=== PATIENT | female | born 1995 | race Caucasian/White ===

== ENCOUNTER → 2018-07-17 17:10 | Observation (INO) ==
[2018-07-17 16:22] LABS: Bilirubin,Urine Negative (Negative); Blood,Urine Negative (Negative); Clarity,Urine Cloudy (Clear); Color,Urine Yellow (Yellow); Glucose,Urine (UA) Normal (Normal); Ketones,Urine 40 mg/dL (Negative); Leukocyte Esterase,Urine Small (Negative); Nitrite,Urine Negative (Negative); Protein,Urine Negative (Neg-Trace); Specific Gravity,Urine 1.008 (1.010-1.025); Urobilinogen,Urine Normal (Normal)
[2018-07-17 16:23] LABS: Bacteria,Urine Moderate per hpf (None-Few); Hyaline Casts,Urine None Seen per lpf (None-Few); RBC,Urine 0-3 per hpf (0-3); Squamous Epithelial Cell,Urine Many per lpf (None-Few)
[2018-07-17 16:32] LABS: Amphetamine Screen,Urine Negative ng/mL (Cutoff=1000); Barbiturate Screen,Urine Negative ng/mL (Cutoff=200); Benzodiazepines Screen,Urine Negative ng/mL (Cutoff=200); Cannabinoid Screen,Urine Negative ng/mL (Cutoff = 50); Cocaine Screen,Urine Negative ng/mL (Cutoff= 300); Opiate Screen,Urine Negative ng/mL (Cutoff=300); Phencyclidine Screen,Urine Negative ng/mL (Cutoff=25)
--- NOTE | 2018-07-17 16:58 | OB/GYN Progress Note ---
Date of Encounter: 07/17/18 Time of Encounter: 16:56 - Assessment and Plan (1) 25 weeks gestation of Current Visit: Yes Status: Acute (2) Cramping affecting , antepartum Current Visit: Yes Status: Acute cramping was postcoital and no contractions seen on toco. Patient discharged home on pelvic rest to followup as scheduled in the office. She was seen and evaluated by RN only. Objective - Vital Signs Vital Signs: Intake and Output 07/17/18 07/17/18 07/17/18 07:59 15:59 23:59 Other: Weight 109.2 kg Patient Weight 07/17/18 23:59 Weight 109.2 kg - Exam FHR: auscultation normal (appropriate for gestational age) - Labs Labs: Abnormal lab results Urine Clarity Cloudy (Clear) A 07/17/18 16:00 Ur Specific [place] 1.008 (1.010-1.025) L 07/17/18 16:00 Urine Ketones 40 mg/dL (Negative) H 07/17/18 16:00 Ur Leukocyte Esterase Small (Negative) H 07/17/18 16:00 Urine Microscopic WBC 5-15 per hpf (0-3) H 07/17/18 16:00 Ur Squamous Epith Cells Many per lpf (None-Few) H 07/17/18 16:00 Urine Bacteria Moderate per hpf (None-Few) H 07/17/18 16:00 Ur Culture Indicated? NO. (NO) A 07/17/18 16:00
== END | disposition home or self-care (01) ==
LOC: 1NENULAB
PROVIDERS: ADMIT Advanced Practice Midwife; ATTEND Advanced Practice Midwife

== ENCOUNTER → 2018-08-03 21:29 | Observation (INO) ==
[2018-08-03 20:25] LABS: Bilirubin,Urine Negative (Negative); Blood,Urine Negative (Negative); Clarity,Urine Clear (Clear); Color,Urine Yellow (Yellow); Glucose,Urine (UA) Normal (Normal); Ketones,Urine Negative (Negative); Leukocyte Esterase,Urine Negative (Negative); Nitrite,Urine Negative (Negative); Protein,Urine Negative (Neg-Trace); Urobilinogen,Urine Normal (Normal)
[2018-08-03 20:34] LABS: Amphetamine Screen,Urine Negative ng/mL (Cutoff=1000); Barbiturate Screen,Urine Negative ng/mL (Cutoff=200); Benzodiazepines Screen,Urine Negative ng/mL (Cutoff=200); Cannabinoid Screen,Urine Negative ng/mL (Cutoff = 50); Cocaine Screen,Urine Negative ng/mL (Cutoff= 300); Opiate Screen,Urine Negative ng/mL (Cutoff=300); Phencyclidine Screen,Urine Negative ng/mL (Cutoff=25)
--- NOTE | 2018-08-03 21:25 | Discharge Summary ---
Date of Encounter: 08/03/18 Time of Encounter: 21:25 - Discharge Diagnosis (1) 27 weeks gestation of Priority: Primary Status: Acute Comments: Admitted for observation for complaint of cramping. (2) NST (non-stress test) reactive Priority: Secondary Status: Acute Comments: FHR 135 bpm, moderate variability, +15x15 accels, no decels. (3) Cramping affecting , antepartum Priority: Secondary Status: Acute Comments: Continuous contraction monitoring reveals no contractions. Abdomen palpates soft. - Discharge Medications Home Medications: Tablet 1 tab PO DAILY 08/03/18 [History] Allergies/Adverse Reactions: 3 Allergy/AdvReac Type Severity Reaction Status Date / Time No Known Allergies Allergy Verified 08/03/18 20:21 Data Procedures and tests throughout hospitalization: Laboratory Tests 08/03/18 08/03/18 20:10 20:10 Urine Color Yellow Urine Clarity Clear Urine pH 7.0 Ur Specific [place] 1.010 Urine Protein Negative Urine Glucose (UA) Normal Urine Ketones Negative Urine Blood Negative Urine Nitrite Negative Urine Bilirubin Negative Urine Urobilinogen Normal Ur Leukocyte Esterase Negative Ur Culture Indicated? NO Urine Opiates Screen Negative Ur Barbiturates Screen Negative Ur Phencyclidine Scrn Negative Ur Amphetamines Screen Negative U Benzodiazepines Scrn Negative Urine Cocaine Screen Negative U Marijuana (THC) Screen Negative Ur Drug Screen Interp See Below Labs on day of discharge: Labs from last 24 hours 08/03/18 08/03/18 20:10 20:10 Urine Color Yellow Urine Clarity Clear Urine pH 7.0 Ur Specific [place] 1.010 Urine Protein Negative Urine Glucose (UA) Normal Urine Ketones Negative Urine Blood Negative Urine Nitrite Negative Urine Bilirubin Negative Urine Urobilinogen Normal Ur Leukocyte Esterase Negative Ur Culture Indicated? NO Urine Opiates Screen Negative Ur Barbiturates Screen Negative Ur Phencyclidine Scrn Negative Ur Amphetamines Screen Negative U Benzodiazepines Scrn Negative Urine Cocaine Screen Negative U Marijuana (THC) Screen Negative Ur Drug Screen Interp See Below Date of admission: 08/03/18 19:31 Discharging clinician: Chelsea Villaseñor Anticipated date of discharge: 08/03/18 - Patient Status Disposition: Home, Self-Care Condition: Good Functional capacity at discharge: independent ambulation Overall status at discharge: patient is back to baseline - Discharge Instructions Follow Up With: Aleja Vásquez DO [Partnered Physician] - - Diet and Activity Activity: resume usual activities as tolerated Diet: regular diet Hospital Course ACCOUNTING PROFESSIONAL Hospital course: Padmini is a at 27 weeks who came in with complaint of cramping and contractions today. States she was at a today and felt very stressed out while she was there. She drank water when she went home but contractions and cramping continued. Patient reported >6 contractions in one hour so she came to OB unit. Reactive NST noted, no contractions on monitor or palpated. SVE closed/thick/high. Patient given labor precautions. Time Attestation: Total time spent providing and/or coordinating discharge services: Time Spent: Less than 30 minutes Exam - Constitutional General appearance IM: A&O X 3, pleasant, no acute distress, obese - Respiratory Respiratory exam: Present: CTAB - Cardiovascular Cardiovascular exam IM: Present: RRR, +S1, +S2 - GI/Abdominal GI/Abdominal exam IM: normal bowel sounds - Rectal Rectal exam: deferred - Extremities Exam Extremities exam IM: Present: normal capillary refill, normal inspection - Neurological Exam Neurological exam: normal gait, oriented X3 - VTE Reasons for not Prescribing Prophylaxis: Treatment not Indicated - Low risk for VTE
== END | disposition home or self-care (01) ==
LOC: 1NENULAB
PROVIDERS: ADMIT Advanced Practice Midwife; ATTEND Advanced Practice Midwife

== ENCOUNTER 2018-11-04 06:37 | Inpatient (IN) ==
[~2018-11-04 06:37] MED LIST: Famotidine 20 MG/2 ML VIAL IVP PRN
[2018-11-04] MEDS ORDERED: Metoclopramide 10 MG/2 ML VIAL IVP PRN (06:42)
[2018-11-04] MEDS ORDERED: Ringers Solution, Lactated 1,000 ML IVC SCH (06:45)
[2018-11-04] MEDS ORDERED: Ringers Solution, Lactated 1,000 ML ONE (06:46)
[2018-11-04 07:14] LABS: Basophils % 0.2 %; Eosinophils % 0.1 %; Hematocrit 41.8 % (35.3-44.9); Hemoglobin 14.4 g/dL (11.5-15.4); Immature Granulocytes % 0.2 % (0-4); Lymphocytes # 2.2 K/mcL (0.6-4.6); Mean Corpuscular HGB Conc 34.4 g/dL (31.6-35.5); Mean Corpuscular Hemoglobin 32.7 pg (28.0-33.3); Monocytes # 0.5 K/mcL (0.0-1.3); Monocytes % 5.9 %; Neutrophils # 6.2 K/mcL (1.6-8.9); Platelet Count 176 K/mcL (140-400); Red Cell Distribution Width 13.2 % (11.5-14.5); Segmented Neutrophils % 69.6 %
[2018-11-04 07:20] LABS: Amphetamine Screen,Urine Negative ng/mL (Cutoff=1000); Barbiturate Screen,Urine Negative ng/mL (Cutoff=200); Benzodiazepines Screen,Urine Negative ng/mL (Cutoff=300)
[2018-11-04 07:21] LABS: Cannabinoid Screen,Urine Negative ng/mL (Cutoff = 50); Cocaine Screen,Urine Negative ng/mL (Cutoff= 300); Opiate Screen,Urine Negative ng/mL (Cutoff=300); Phencyclidine Screen,Urine Negative ng/mL (Cutoff=25)
--- NOTE | 2018-11-04 08:49 | OB/GYN History & Physical ---
Date of Encounter: 11/04/18 Time of Encounter: 08:45 Assessment and Plan (1) 40 weeks gestation of Current visit: Yes Status: Acute 22 y/o @ 40+6 weeks, h/o prior for NRFHT(desires TOLAC), GBS neg Plan: I discussed with the patient again about the risks of TOLAC and she expressed her understanding, we will allow to make progress as she is now 3-4cm from 2cm at arrival, if stalled, will start pitocin, ok for epidural if she desires, anticipate FHT CAT 1 History of Present Illness HPI: Ms. Jackson is a 22 year old female @ 40+6 weeks presents to L&D with SROM @ 2AM. She is having some contractions, has some slight bleeding with leaking of fluid, feels good FM. She has a h/o of a prior for NRFHT. She desires a TOLAC. She has been counseled on the risks including uterine rupture, demise, emergency surgery etc and wants to proceed. She is GBS neg. She desires permanent sterilization. Past Med Surg Social Fam HX - Past Medical History Medical history: other Additional medical history: history of gallbladder complications Psychiatric history: anxiety, depression - Past Surgical History Surgical History: Additional surgical history: wisdom teeth removed - Social History Smoking Status: Never smoker Smokeless Tobacco Status: No Alcohol use: none Drug use: marijuana - Family History Mother Adopted: No Family Member Ethnicity: Non- Living Status: Still Living Hx Family Cardiac Disorders: Yes (htn) Hx Family Respiratory Disorders: No Hx Family Cancer: No Hx Family GI Disorders: No Hx Family Genitourinary Disorders: No Hx Family Endocrine Disorder: Yes (diabetic) Hx Family Musculoskeletal Disorders: No Hx Family Neuromuscular Disorders: No Hx Family Neurologic Disorders: No Hx Family HEENT Disorders: No Hx Family Autoimmune Disorders: No Hx Family Reproductive Disorders: No Hx Family Psychosocial Disorders: No Hx Family Medical Disorders: No Obstetrical History - Pregnancies : 4 Para: 2 Medications and Allergies Tablet 1 tab PO DAILY 08/03/18 [History] Pepcid 20 mg PO DAILY 11/04/18 [History] Allergy/AdvReac Type Severity Reaction Status Date / Time No Known Allergies Allergy Verified 08/03/18 20:21 Review of System OB All systems PM: reviewed and no additional remarkable complaints except as stated Exam - Vital Signs Vital signs: Initial Vital Signs BP 131/76 11/04/18 06:50 - Constitutional Constitutional: no acute distress - HEENT HEENT: PERRL - Neck Neck exam: full ROM - Lungs Respiratory exam: CTAB - Cardiovascular Cardiovascular exam: RRR - Abdomen Abdomen: Present: gravid - Cervix Dilation: 3 Results Result Diagrams: 11/04/18 06:34 All other labs normal. - VTE Reasons for not Prescribing Prophylaxis: Treatment not Indicated - Low risk for VTE
--- NOTE | 2018-11-04 09:06 | Anesthesia Evaluation PreOp ---
Date of Encounter: 11/04/18 Time of Encounter: 08:43 - Past History Planned Operation: del (TOLAC) 1-vaginal,1-section term Cardiac History: Denies any Significant Hx Pulmonary History: Denies Any Significant HX CABLE BRAIDER History: Denies Any Significant HX Other Medical History: Other (anxiety, depression, MO = 48) Anesthesia History: No Prior Anesthetic Complications, Past Anesthesia (previous epidural x2 (was challenging in past took long time) had to get 1 replaced, no family hx reported) Alcohol Use: none Drug use: marijuana Medications and Allergies Tablet 1 tab PO DAILY 08/03/18 [History] Pepcid 20 mg PO DAILY 11/04/18 [History] Allergy/AdvReac Type Severity Reaction Status Date / Time No Known Allergies Allergy Verified 08/03/18 20:21 Anesthesia Results - Labs 11/04/18 06:34 Anesthesia Exam - HEENT Pupil (Motor): Pupils equal Mallampati: II Teeth: Normal Oral Opening: Greater than 3 - CABLE BRAIDER LOC: Oriented CABLE BRAIDER Motor: Normal RUE, Normal LUE, Normal RLE, Normal LLE, Normal Face CABLE BRAIDER Sensory: Normal: RUE, LUE, RLE, LLE, Face - Cardiac Rhythm: Regular Murmur: None - Pulmonary Breath Sounds: bilateral Clear Respiratory Effort: Symmetrical Anesthesia Assess/Plan ASA Score: 3 Level of consciousness: Cooperative, Oriented Anesthetic Plan: General, Spinal, Epidural Monitoring Plan: Standard Monitors Recovery Plan: PACU
[2018-11-04] MEDS ORDERED: Epidural Premix (fent/bupiv) 110 ML EP SCH (09:15)
[2018-11-04] MEDS ORDERED: Lidocaine -MPF 2% 5 ML VIAL ONE (09:39)
--- NOTE | 2018-11-04 13:43 | OB Labor Progress Note ---
Date of Encounter: 11/04/18 Time of Encounter: 13:39 Labor Progress Note - Subjective Subjective: patient doing well - Vital Signs Vital Signs: VSS - Cervix Cervix: 5-6cm - Heart Tones Heart Tones: CAT 1 - Plan Plan: espinal was placed and has fallen out with current dilation, can start pitocin, ok for epidural if she desires, anticipate
[2018-11-04] MEDS ORDERED: Oxytocin 20 units/ LR 1000 mL 20 UNIT/1,000 ML BAG IVC SCH (13:45)
--- NOTE | 2018-11-04 16:51 | Anesthesia Procedures ---
Addendum entered and electronically signed by Jose Cherry CRNA 11/05/18 02:52: [id number] converted to surgical epidural for Original Note: Date of Encounter: 11/04/18 Time of Encounter: 16:18 Procedures: Anesthesia - Epidural/Spinal Patient ID/Chart reviewed: Yes Patient examined: Yes OB Eval: Gestational age: term OB Eval: Contractions: Non-stressed pattern Consent Obtained: Yes Supplemental Oxygen: None/Room Air Site Prep: Aseptic Technique, Sterile prep and drape, 0.5% Chlorhexidine/Alcohol Patient position: upright Local Anesthetic: Lidocaine 1% Amount of Local Anesthetic used: 3 Touhy Needle Gauge: 18 Touhy Needle Depth (cm): 11 Catheter Depth at Skin (cm): 15 Test Dose (1.5% Lido + Epi): Volume given (mls): 4 Test Dose Result: Negative Loading Dose: Other: 10ml from solution Loading Dose Administered: Thru Catheter Infusion Med: 0.125% Bupivacaine w/ 2 mcg/ml Fentanyl Infusion Rate (mls/hr): [address]: Tegaderm, Tape Interspace Used: L3-L4 Loss of Resistance (ANNIA): Yes (saline) Blood: No CSF: Yes (purposeful dura pop with 27g pencan no med inj) Paresthesia: No Procedure: vss though out procedure, FHR minor dip requiring left lateral tilt, pit off, fl uid bolus cont, 2 doses of dana 25mcg and 50mcg, patient was not symptomatic though out, family engagement specialist in to check patient status same, lowest BP was 106 sys.
--- NOTE | 2018-11-04 16:52 | OB Labor Progress Note ---
Date of Encounter: 11/04/18 Time of Encounter: 16:43 Labor Progress Note - Subjective Subjective: patient had a 3 min decel s/p epidural induced hypotension with spont recovery - Vital Signs Vital Signs: VSS - Cervix Cervix: 6-7cm - Heart Tones Heart Tones: CAT 2 - Plan Plan: cont monitoring strip, anticipate
[2018-11-04] MEDS ORDERED: Acetaminophen 325 MG TABLET PO ONE ×2 (18:24→19:00)
[2018-11-04] MEDS ORDERED: Famotidine 20 MG/2 ML VIAL IVP ONE (18:24)
[2018-11-04] MEDS ORDERED: 0.9 % Sodium Chloride 1,000 ML ONE (21:17)
--- NOTE | 2018-11-04 21:23 | OB Labor Progress Note ---
Date of Encounter: 11/05/18 Time of Encounter: 21:21 Labor Progress Note - Subjective Subjective: Went in to evaluate the patient due to +rec deborah decels - Vital Signs Vital Signs: VSS - Cervix Cervix: 5-6cm (unchanged) - Heart Tones Heart Tones: 140/mod deborah/+accels, +rec deborah decels - [place]: irreg - Plan Plan: I again recommended to the patient that we go in for a c section given the tracing but she refused. I counseled her about the risks of uterine rupture and the increased risk of doing this emergently but she refused, FSE and IUPC placed, cont monitoring strip, will start amnioinfusion
[2018-11-04] MEDS ORDERED: *HR* FentaNYL (PF) 100 MCG/2 ML VIAL ONE (21:56)
[2018-11-04] MEDS ORDERED: Lidocaine/EPI 1:200k 2% PF 20 ML VIAL ONE (21:58)
[2018-11-04] MEDS ORDERED: *HR* Oxytocin 10 UNIT/ML VIAL IM ONE (23:01)
[2018-11-04] MEDS ORDERED: *HR* HYDROmorphone (PF) 1 MG/ML SYRINGE IVP PRN (23:23)
[2018-11-04] MEDS ORDERED: *HR* Morphine Sulfate/PF 10 MG/10 ML AMPUL ONE (23:30)
--- NOTE | 2018-11-04 23:54 | OB/GYN Procedure Note ---
Section - Date of procedure: 11/04/18 Preop diagnosis: desires repeat , category 2 FHT tracing Post-op diagnosis: same Procedure: repeat low transverse Surgeon: Lily Valdes Blood Loss: 400 Was there an statistical assistant present: Yes Glass Unloading Equipment Tender: Isis Felder Anesthesia Type: Epidural section complications: none Disposition: L&D Recovery Room Specimens: Placenta - Narrative Narrative: The patient was brought to the operating room with satisfactory epidural anesthesia. The abdomen was prepped and draped in a sterile fashion. A Pfannenstiel incision was made and carried sharply down to the level of the fascia. The fascia was incised transversely. The fascia was dissected away from the underlying rectus muscles. With sharp and blunt dissection, the rectus muscles were divided in the midline. The peritoneum was entered bluntly. A bladder retractor was placed to protect the bladder. A transverse incision was made across the lower uterine segment. The incision was manually extended. The infant's head was pulled up and delivered as were the shoulders and body. The mouth and oropharynx were suctioned. The cord was clamped and cut. The infant was passed off to the waiting nurse in satisfactory condition. APGARS 8/9, weight 4035g. The placenta was extracted completely and found to be intact. The uterus was explored and found to be empty. Intravenous Pitocin was administered. Clamps were placed about the margins of the uterine incision, which was closed primarily with a running locking stitch of 0 Vicryl with adequate hemostasis. The fascia was closed with a simple running stitch of 0 vicryl. The subcutaneous tissue was closed with 3-0 vicryl. The skin was closed with running subcuticular of 4-0 vicryl. The patient was brought to the recovery room in satisfactory condition.
--- NOTE | 2018-11-05 02:33 | Anesthesia Evaluation Post Op ---
Date of Encounter: 11/05/18 Time of Encounter: 01:55 - Vital Signs Vital Signs: vss - Lungs Lungs: Clear Ascult./Percussion - Airway Airway: Non-obstructed - Mental Status Mental Status: Alert & Oriented, Answers Appropriately - Pain Pain Scale used: Antony (Faces) - Nausea Vomiting Nausea Vomiting: Not Present - Hydration Hydration: Jean catheter - Discharge PostOp Status: Transfer Patient to floor
[2018-11-05] MEDS ORDERED: Oxytocin 20 units/ LR 1000 mL 20 UNIT/1,000 ML BAG IVC SCH ×2 (02:49)
[2018-11-05] MEDS ORDERED: Lanolin 7 G OINT...G. TP PRN (02:49)
[2018-11-05] MEDS ORDERED: Measles/Mumps/Rubella Vacc 0.5 ML VIAL SQ ONE (02:49)
[2018-11-05] MEDS ORDERED: Sennosides 8.6 MG TABLET PO PRN (02:49)
[2018-11-05] MEDS ORDERED: Simethicone 80 MG TAB.CHEW PO PRN (02:49)
[2018-11-05] MEDS ORDERED: Metoclopramide 10 MG/2 ML VIAL IVP PRN (02:49)
[2018-11-05] MEDS ORDERED: Ondansetron 4 MG/2 ML VIAL IVP PRN (02:49)
[2018-11-05 06:27] LABS: Basophils % 0.3 %; Eosinophils % 0.1 %; Hematocrit 33.9 % (35.3-44.9); Immature Granulocytes % 0.3 % (0-4); Lymphocytes # 1.8 K/mcL (0.6-4.6); Lymphocytes % 14.8 %; Mean Corpuscular HGB Conc 33.6 g/dL (31.6-35.5); Mean Corpuscular Hemoglobin 32.8 pg (28.0-33.3); Mean Corpuscular Volume 97.4 fL (83.0-100.0); Mean Platelet Volume 11.6 fL (9.4-12.4); Monocytes # 1.1 K/mcL (0.0-1.3); Monocytes % 8.9 %; Platelet Count 121 K/mcL (140-400); Red Blood Count 3.48 M/mcL (3.82-4.97); Red Cell Distribution Width 13.4 % (11.5-14.5); Segmented Neutrophils % 75.6 %
--- NOTE | 2018-11-05 06:29 | Event Note ---
Date of Encounter: 11/04/18 Time of Encounter: 12:00 Cervical espinal placed without difficulty at request of Dr. Siegel. 60 mL sterile water instilled without difficulty.
[2018-11-05 06:30] LABS: Hemoglobin 11.4 g/dL (11.5-15.4)
[2018-11-05] MEDS: *HR* OxyCODONE/APAP 5/325 TABLET PO PRN (07:20)
[2018-11-05] MEDS: Prenatal Vit/FA 1 EACH TABLET PO SCH (09:16)
--- NOTE | 2018-11-05 09:32 | OB/GYN Progress Note ---
Date of Encounter: 11/05/18 Time of Encounter: 09:28 - Assessment and Plan (1) Status post repeat low transverse section Current Visit: Yes Status: Acute Meeting all day 1 milestones Continue routine care Anticipate discharge to home tomorrow (2) Breast feeding status of mother Current Visit: Yes Status: Acute consult when necessary Subjective - Subjective Principal diagnosis: RLTCS Interval history: Feeling well. Out of bed without dizziness. Some abdominal discomfort-using binder. Cramping minimal, using ibuprofen and Percocet. every 2- 3 hours. Some nipple soreness. Voiding without difficulty. Passing flatus, no BM yet. Tolerating clear liquid diet. Patient reports: appetite normal, voiding normally, pain well controlled, ambulating normally Dola: doing well, nursing well Objective - Vital Signs Latest vital signs: Vital Signs Temp Pulse Resp BP Pulse Ox 11/05/18 09:10 16 11/05/18 05:30 99.0 F 94 16 132/84 98 11/05/18 04:00 98.9 F 89 16 126/84 97 11/05/18 03:00 98.8 F 95 16 124/81 97 11/05/18 02:30 98.8 F 95 16 135/84 98 11/05/18 02:00 98.8 F 87 16 114/74 97 Intake and Output 11/04/18 11/05/18 11/05/18 23:59 07:59 15:59 Output Total 1850 / 1850 Balance -1850 / -1850 Output: Catheter 1850 / 1850 Other: Weight 112.5 kg Patient Weight 11/05/18 23:59 Weight 112.5 kg - Exam Lungs: bilateral: normal Chest: Normal S1, Normal S2 Extremities: Present: normal, edema Abdomen: Present: normal appearance, soft Incision: Present: normal, dry, dressed Uterus: Present: normal, firm Fundal Height: 0 (Midline and firm) - Labs Labs: Laboratory Results - last 24 hr 11/04/18 11/05/18 14:54 06:15 WBC 11.9 H RBC 3.48 L Hgb 11.4 L D Hct 33.9 L MCV 97.4 MCH 32.8 MCHC 33.6 RDW 13.4 Plt Count 121 L MPV 11.6 Immature Gran % 0.3 Seg Neutrophils % 75.6 Lymphocytes % 14.8 Monocytes % 8.9 Eosinophils % 0.1 Basophils % 0.3 Neutrophils # 9.0 H Lymphocytes # 1.8 Monocytes # 1.1 Eosinophils # 0.0 Basophils # 0.0 Hep Bs Antigen Nonreactive
[2018-11-05] MEDS: Famotidine 20 MG TABLET PO SCH ×2 (09:49→19:56)
[2018-11-05] MEDS: Ibuprofen 600 MG TABLET PO PRN ×2 (13:48→20:00)
[2018-11-06] MEDS: Ibuprofen 600 MG TABLET PO PRN ×2 (02:00→08:25)
[2018-11-06] MEDS: *HR* OxyCODONE/APAP 5/325 TABLET PO PRN ×2 (04:19→08:25)
[2018-11-06] MEDS: Prenatal Vit/FA 1 EACH TABLET PO SCH (08:25)
[2018-11-06] MEDS: Famotidine 20 MG TABLET PO SCH (08:25)
--- NOTE | 2018-11-06 08:39 | Discharge Summary ---
Date of Encounter: 11/06/18 Time of Encounter: 08:36 - Discharge Diagnosis (1) Breast feeding status of mother Priority: Secondary Status: Acute (2) Status post repeat low transverse section Priority: Primary Status: Acute Comments: Pt reports pain well controlled with PO medications. No other complaints. - Discharge Medications Prescriptions: Ibuprofen [Motrin] 600 mg PO Q6HR PRN #30 tablet PRN Reason: Cramping OxyCODONE/APAP 5/325 [Percocet 5/325 MG] 1 each PO Q6HR PRN 7 Days #28 tablet PRN Reason: Moderate pain 4-6 Docusate [Colace] 100 mg PO BID #30 capsule Home Medications: Tablet 1 tab PO DAILY 08/03/18 [History] Pepcid 20 mg PO DAILY 11/04/18 [History] Docusate [Colace] 100 mg PO BID #30 capsule 11/06/18 [Rx] Ibuprofen [Motrin] 600 mg PO Q6HR PRN #30 tablet 11/06/18 [Rx] Lanolin [Lansinoh] 1 appl TP TID PRN oint...g. 11/06/18 [Rx] OxyCODONE/APAP 5/325 [Percocet 5/325 MG] 1 each PO Q6HR PRN 7 Days #28 tablet 11/06/18 [Rx] Simethicone [Gas-X] 80 mg PO TID PRN tab.chew 11/06/18 [Rx] Allergies/Adverse Reactions: Allergy/AdvReac Type Severity Reaction Status Date / Time No Known Allergies Allergy Verified 08/03/18 20:21 Data Procedures and tests throughout hospitalization: Laboratory Tests 11/04/18 11/04/18 11/04/18 06:30 06:34 14:54 WBC 8.9 RBC 4.40 Hgb 14.4 Hct 41.8 MCV 95.0 MCH 32.7 MCHC 34.4 RDW 13.2 Plt Count 176 MPV 12.0 Immature Gran % 0.2 Seg Neutrophils % 69.6 Lymphocytes % 24.0 Monocytes % 5.9 Eosinophils % 0.1 Basophils % 0.2 Neutrophils # 6.2 Lymphocytes # 2.2 Monocytes # 0.5 Eosinophils # 0.0 Basophils # 0.0 Urine Opiates Screen Negative Ur Barbiturates Screen Negative Ur Phencyclidine Scrn Negative Ur Amphetamines Screen Negative U Benzodiazepines Scrn Negative Urine Cocaine Screen Negative U Marijuana (THC) Screen Negative Ur Drug Screen Interp See Below Hep Bs Antigen Nonreactive 11/05/18 06:15 WBC 11.9 H RBC 3.48 L Hgb 11.4 L D Hct 33.9 L MCV 97.4 MCH 32.8 MCHC 33.6 RDW 13.4 Plt Count 121 L MPV 11.6 Immature Gran % 0.3 Seg Neutrophils % 75.6 Lymphocytes % 14.8 Monocytes % 8.9 Eosinophils % 0.1 Basophils % 0.3 Neutrophils # 9.0 H Lymphocytes # 1.8 Monocytes # 1.1 Eosinophils # 0.0 Basophils # 0.0 Urine Opiates Screen Ur Barbiturates Screen Ur Phencyclidine Scrn Ur Amphetamines Screen U Benzodiazepines Scrn Urine Cocaine Screen U Marijuana (THC) Screen Ur Drug Screen Interp Hep Bs Antigen Date of admission: 11/04/18 06:37 Primary care physician: PCP NONE Discharging clinician: Kareen Hanna Anticipated date of discharge: 11/06/18 - Patient Status Disposition: Home, Self-Care Condition: Good Functional capacity at discharge: independent ambulation Overall status at discharge: patient is progressing back to baseline - Discharge Instructions Follow Up With: NONE,PCP [Primary Care Provider] - Lily Siegel MD [Partnered Physician] - - Diet and Activity Activity: increase activity as tolerated Diet: regular diet Hospital Course Delivery: section Episiotomy: none Laceration: none Other procedures: none complications: none Discharge diagnosis: IUP at term delivered baby: female Hospital course: - Date of procedure: 11/04/18 Preop diagnosis: desires repeat , category 2 FHT tracing Post-op diagnosis: same Procedure: repeat low transverse Surgeon: Lily Siegel Quantitated Blood Loss: 400 Was there an library clerical assistant present: Yes Sales Account Associate: Isis Felder Anesthesia Type: Epidural section complications: none Disposition: L&D Recovery Room Specimens: Placenta Time Attestation: Total time spent providing and/or coordinating discharge services: Time Spent: Less than 30 minutes - VTE Reasons for not Prescribing Prophylaxis: Treatment not Indicated - Low risk for VTE Documentation of Mechanical Device: Intermittent pneumatic compression device Exam - Constitutional Vitals: Temp Pulse Resp BP Pulse Ox 98.0 F 102 14 129/75 98 11/05/18 20:30 11/05/18 20:30 11/05/18 20:30 11/05/18 20:30 11/05/18 20:30 General appearance IM: A&O X 3 - Respiratory Respiratory exam: Present: CTAB - Cardiovascular Cardiovascular exam IM: Present: RRR - GI/Abdominal GI/Abdominal exam IM: soft, no peritoneal signs Incision: intact Additional comments: no s/sx infection, steri strips intact - Uterine Tone: Firm Uterus Position: 2 Fingers Below Umbilicus - Extremities Exam Extremities exam IM: Present: pedal edema (mild bilaterally) - Neurological Exam Neurological exam: normal gait, oriented X3 - Psychiatric Additional comments: reports good mood, plans for vasectomy for contraception
[2018-11-06 08:42] VITALS: BP 116/77
== END 2018-11-06 16:00 | disposition home or self-care (01) | DRG 540 ==
LOC: 1NENULAB → 1NENUOBS 11-05 02:48
PROVIDERS: ADMIT Advanced Practice Midwife; ATTEND Advanced Practice Midwife